=== PATIENT | female | born 1980 | race Caucasian/White ===

== ENCOUNTER 2020-05-08 18:12 | Emergency (ER) | payer BC, SELFPAY ==
[2020-05-08] VITALS (7 sets, daily range): BP systolic 145–160; BP diastolic 87–96; PULSE 62–78; RESP 15–20; TEMP 36.9; O2SAT 99–100
--- NOTE | ~2020-05-08 | CT_ITS ---
EXAMINATION: CT abdomen pelvis w con DATE: 05/08/2020 19:59 INDICATION: Right upper quadrant abdominal pain. TECHNIQUE: Computed tomography (CT) of the abdomen and pelvis was performed with 100 mL Omnipaque-350 intravenous contrast. Automated exposure control and iterative reconstruction technique were employe d. The dose-length product was 504.69 mGy-cm. COMPARISON: None FINDINGS: Mild dependent atelectasis in the bilateral lower lobe. Heart size is normal. No pericardial or pleur al effusion. Focal hepatic steatosis at the ligamentum teres. Gallbladder, spleen, pancreas, bilatera l adrenal glands and kidneys are normal. No intra or extrahepatic biliary ductal dilation. Bowels inc luding the appendix are normal. Heterogeneously enhancing 1.9 and 5.0 cm uterine fibroids. Bladder is normal. 11 mm peripherally enhancing likely corpus luteum cyst in the right ovary. Tampon within the vaginal vault. No free intraperitoneal gas or fluid. No pathologically enlarged abdominal or pelvic lymphadenopathy. Bones are unremarkable. IMPRESSION: 1. No acute intra-abdominal/pelvic process. 2. Fibroid uterus. Reviewed, dictated and finalized at location A.
[2020-05-08 18:46] LABS: Basophils Percent Auto 0.3 % (0.2-1.2); Eosinophils Percent Auto 0.2 % (0-4.4); Hemoglobin 13.3 g/dL (12.0-15.0); Immature Granulocyte Absolute 0.03 K/mm3 (0.00-0.031); Immature Granulocyte Percent A 0.3 % (0-0.5); Lymphocytes Absolute Auto 1.21 K/mm3 (0.9-3.2); Lymphocytes Percent Auto 12.2 % (18.3-44.2); Mean Corpuscular HGB Conc 34.1 g/dl (32-36); Mean Corpuscular Hemoglobin 30.6 pg (26-34); Mean Corpuscular Volume 89.7 fl (80-100); Mean Platelet Volume 9.6 fl (7.4-10.4); Monocytes Absolute Auto 0.4 K/mm3 (0.1-0.6); Monocytes Percent Auto 3.7 % (2.6-8.5); Neutrophils Absolute Auto 8.2 K/mm3 (1.3-6.7); Neutrophils Percent Auto 83.3 % (45.5-73.1); Platelet Count Result 331 k/mm3 (150-375); Red Blood Count 4.35 M/mm3 (4.2-5.4); Red Cell Distribution Width 12.8 % (11.5-14.5); White Blood Count 9.9 K/mm3 (4.5-10.0)
[2020-05-08 18:58] LABS: Alanine Aminotransferase 31 U/L (4-35); Albumin Level 4.7 g/dL (3.5-5.1); Alkaline Phosphatase 94 U/L (38-126); Aspartate Amino Transferase 34 U/L (14-36); Bilirubin,Total 0.5 mg/dL (0.2-1.3); Blood Urea Nitrogen 6 mg/dL (7-17); Calcium 9.1 mg/dL (8.4-10.2); Carbon Dioxide 26 mmol/L (22-30); Chloride 104 mmol/L (98-107); Estimated CRCL calculation 89 ml/min; Estimated Glomerular Filt Rate > 60; Glucose 125 mg/dL (65-105); Lipase 45 U/L (23-300); Potassium 3.4 mmol/L (3.4-5.0); Sodium 138 mmol/L (137-145)
--- NOTE | 2020-05-08 19:06 | ED.ABDPAIN ---
HPI - Abdominal Pain General Chief Complaint: Abdominal Pain <PAMELA Becker Last Filed: 05/08/20 20:28> Stated Complaint: abd pain <PAMELA Becker Last Filed: 05/08/20 20:28> Time Seen by Provider: 05/08/20 18:17 <PAMELA Becker Last Filed: 05/08/20 20:28> Source: patient <PAMELA Becker Last Filed: 05/08/20 20:28> Mode of arrival: ambulatory <PAMELA Becker Last Filed: 05/08/20 20:28> Limitations: no limitations <PAMELA Becker Last Filed: 05/08/20 20:28> History of Present Illness HPI narrative: Patient is a 40-year-old female who presents with 3 days duration of right upper abdominal pain noting that over the weekend she had a day of diffuse loose stools followed by some nausea and vomiting and states that she has continued to have pain to the right upper quadrant patient notes that the pain typically is worse after 2 hours of eating with associated decreased appetite patient presents per private vehicle has not had anything for her symptoms denies similar occurrence in the past denies radiation of pain or other complaints and is in the room on arrival in no distress <PAMELA Becker Last Filed: 05/08/20 20:28> Related Data Allergies/Adverse Reactions: Allergies Allergy/AdvReac Type Severity Reaction Status Date / Time No Known Allergies Allergy Unknown NONE Unverified 08/14/09 12:11 <PAMELA Becker Last Filed: 05/08/20 20:28> Review of Systems Review of Systems: All systems reviewed & are unremarkable except as noted in HPI and below <PAMELA Becker Last Filed: 05/08/20 20:28> PMF Family History Family History: Family History (Updated 07/21/14 @ 07:13 by DOCTOR UNKNOWN) Mother Hypertension Family history of gastrointestinal disorder Family history of hearing loss Father Patient's father is Family history of malignant neoplasm of brain Other Cerebrovascular accident Diabetes mellitus Family history of cardiovascular disease Family history of congestive heart failure Family history of thyroid disease <PAMELA Becker Last Filed: 05/08/20 20:28> Social History Social History: Social History Smoking status: Never smoker Alcohol intake: current Gender identity (if verbalized by the patient): Female <Ld Maradiaga PA-C - Last Filed: 05/08/20 20:28> Exam Narrative: Exam Narrative: GENERAL: Well-appearing, well-nourished, and in no acute distress. HEAD: Normocephalic, atraumatic. EYES: PERRLA and EOMI. ENT: Nares clear, no rhinorrhea or epistaxis. Mucous membranes moist. CHEST: Clear to auscultation. No respiratory distress. No wheezes rales or rhonchi HEART: Regular rate and rhythm. No murmur heard. Normal peripheral pulses. ABDOMEN: Soft, right mid and upper quadrant tenderness to palpation no rebound or guarding, nondistended, normal active bowel sounds. EXTREMITIES: Normal range of motion. No edema. SKIN: Warm, dry, no rash. NEURO: No focal deficits. Alert and oriented x3. Cranial nerves II through XII grossly intact PSYCH: Normal mood and affect. <Ld Maradiaga PA-C - Last Filed: 05/08/20 20:28> Course Course Emergency Course: Patient in the room in no distress aware of case findings treatment plan and diagnosis agreeing to follow-up with gastroenterology and primary care as instructed <Ld Maradiaga PA-C - Last Filed: 05/08/20 20:28> Vital Signs Vital signs: Vital Signs Temperature 98.4 F 05/08/20 18:18 Pulse Rate 74 05/08/20 18:18 Respiratory Rate 18 05/08/20 18:18 Blood Pressure 160/96 H 05/08/20 18:18 Pulse Oximetry 100 05/08/20 18:18 Temperature 98.4 F 05/08/20 18:18 Pulse Rate 70 05/08/20 20:30 Respiratory Rate 16 05/08/20 20:30 Blood Pressure 145/87 H 05/08/20 20:30 Pulse Oximetry 99 06/
[2020-05-08] MEDS: SODIUM CHLORIDE 0.9% IV 1,000 ML 999 ML IV CONT (19:10)
[2020-05-08] MEDS: FAMOTIDINE 20 MG/2 ML VIAL IV PUSH (19:10)
[2020-05-08] MEDS: ONDANSETRON INJ 4 MG/2 ML VIAL IV PUSH (19:10)
--- NOTE | 2020-05-08 19:27 | PC.NURSE ---
Assumed care of pt at this time. report from grayson jay
--- NOTE | 2020-05-08 19:29 | PC.NURSE ---
Assumed care of pt at this time. report from JAVIER Azul
[2020-05-08 19:49] LABS: Add Urine Microscopic? YES; Appearance Urine Clear (Clear); Bacteria Urine Trace /hpf; Bilirubin Urine Negative (Negative); Blood Urine 1+ (Negative); Color Urine Yellow (Yellow); Glucose Urine UA Negative (Negative); Ketones Urine 1+ mg/dL (Negative); Leukocyte Esterase Ur Negative LEU/UL (Negative); Mucus Urine Rare /lpf; Nitrate Urine Negative (Negative); Protein Urine Negative (Negative); RBC Urine 0-2 /hpf (0-2); Specific Grav Ur 1.015 (1.001-1.035); Squamous Epithelial Cell Urine Occasional /hpf (Few); Urobilinogen Urine Negative mg/dL (<2.0); WBC Urine 0-3 /hpf
== END 2020-05-08 20:30 | disposition home or self-care (01) ==
PROVIDERS: Emergency Medicine Emergency Medical Services; Emergency Provider Emergency Medicine; PCP Family Medicine
DX: R10.11 Right upper quadrant pain (principal); D25.9 Leiomyoma of uterus, unspecified
CPT/HCPCS: 36415; 74177; 80053; 81001; 81025; 83690; 85025; 96365; 96375; 99284; J0131; J2405; J7030; Q9967

== ENCOUNTER → 2020-05-23 09:41 | Outpatient (CLI) | payer BC, SELFPAY ==
--- NOTE | ~2020-05-23 | US_ITS ---
EXAMINATION: US right upper quadrant EXAM DATE: 05/23/2020 10:09 INDICATION: Epigastric pain, symptoms 3 weeks. TECHNIQUE: Multiple grayscale and Doppler images of the abdomen right upper quadrant were obtained (b y a technologist who performed the scan) and subsequently reviewed. There is no prior study for scott augustin. FINDINGS: The pancreatic head and body are normal in appearance. The pancreatic tail is not visualized. The l iver has normal echogenicity and contour. There are no focal liver lesions identified. There is no evidence of intrahepatic biliary duct dilation. Portal venous flow was seen in the hepatopedal, nor mal direction and has normal Doppler waveform. No right-sided hydronephrosis. Common bile duct measures 4 mm, which is normal. The gallbladder wall is normal in thickness, with sm all amount of distention. No sonographic evidence of pericholecystic fluid. There is gallbladder de bris. Technologist performing exam reports patient did not demonstrate sonographic Garcia's sign. Please note that this sign is less reliable in patients who have received pain medication. IMPRESSION: 1. Some gallbladder debris. Otherwise unremarkable exam. Reviewed, dictated and finalized at location B.
== END ==
PROVIDERS: PCP Family Medicine; Visit Provider Internal Medicine Gastroenterology
DX: R10.13 Epigastric pain (principal)
CPT/HCPCS: 76705

== ENCOUNTER 2020-05-26 00:24 | Outpatient (CLI) | payer BC, SELFPAY ==
[2020-05-27 00:18] LABS: SARS-CoV-2 RNA PCR Negative
== END 2020-05-26 00:25 | disposition home or self-care (01) ==
LOC: ANHCOVIDDT 00:24
PROVIDERS: PCP Family Medicine; Visit Provider Internal Medicine Gastroenterology
DX: Z01.818 Encounter for other preprocedural examination (principal); Z11.59 Encounter for screening for other viral diseases
CPT/HCPCS: 87635; C9803; U0003

== ENCOUNTER 2020-05-29 01:53 | Day surgery (SDC) | payer BC, SELFPAY ==
[2020-05-23 11:43] VITALS: BMI 26.9
[2020-05-29 07:27] VITALS: BMI 25.9
[2020-05-29 07:28] VITALS: BP 129/80; PULSE 95; RESP 18; TEMP 36.4; O2SAT 95
[2020-05-29] MEDS: LACTATED RINGERS 1,000 ML 150 ML IV CONT (07:37)
--- NOTE | 2020-05-29 07:54 | WPDGICN ---
Assessment and Plan Assessment and plan (1) Epigastric abdominal pain: Code(s): R10.13 - Epigastric pain Status: Acute Assessment and Plan: Plan is to continue trial of proton pump inhibitor. Plan is for EGD to assess more thoroughly. Further recommendations will be given after endoscopy. GI Consult Note Consult date/time: 05/29/20 07:54 HPI: Sharita Esparza is a 40 year old female seen in evaluation at the request of Dr Francisco Brown. Patient reports several week history of epigastric abdominal pain. She describes burping and cramping associated with this pain. Pain begins in the right upper quadrant radiates to the midepigastric area. She describes the pain as burping and cramping. It began in the right upper quadrant radiated to the midepigastric area. After being seen in the emergency room was given a trial of Levsin antispasmodic agent with no change in symptoms. She recently has been on omeprazole with some gradual improvement of symptoms. For several days she has been pain-free. Family history is significant that her mother had Crohn's disease in this is of concern to the patient. Recent CT scan in the ER was unremarkable. Review of Systems Review of Systems: All systems reviewed & are unremarkable except as noted in HPI and below PMFSH Family History Family History Mother Hypertension Family history of gastrointestinal disorder Family history of hearing loss Father Patient's father is Family history of malignant neoplasm of brain Other Cerebrovascular accident Diabetes mellitus Family history of cardiovascular disease Family history of congestive heart failure Family history of thyroid disease Social History Social History Smoking status: Never smoker Alcohol intake: current Gender identity (if verbalized by the patient): Female Meds Home Medications and Allergies Home Medications Medication Instructions Recorded Confirmed Type omeprazole 40 mg PO DAILY #10 cap 05/08/20 05/29/20 Rx Allergies Allergy/AdvReac Type Severity Reaction Status Date / Time oxycodone Allergy Itching Verified 05/29/20 07:26 Vital Signs Vital Signs - 24 hr 05/29/20 07:28 Temperature 97.5 F L Pulse Rate 95 Respiratory Rate 18 Blood Pressure 129/80 Pulse Oximetry 95 Exam Narrative: Exam Narrative: Physical exam reveals patient to be alert. Vital signs stable. HEENT exam unremarkable. She is anicteric. Lungs are clear to auscultation and percussion. Heart is without murmur or extra sounds. Abdominal exam bowel sounds are present soft nontender with no hepatosplenomegaly. Digital external rectal exam normal.
--- NOTE | 2020-05-29 07:59 | WPDANESEPPF ---
Anes - Initial Pre Proc Eval Procedure: Operation Date: 05/29/20 08:30 Proposed Procedures p Esophagogastroduodenoscopy - Robel Guerrero MD Date/Time: 05/29/20 07:59 Surgeon: Robel Guerrero MD Pre Op Diagnosis: Epigastric Pain Patient Data Age: 40 Gender: F Height: 5 ft 7 in Weight: 75.1 kg Last Vital Signs Temp 36.4 C L 05/29/20 07:28 Pulse 95 05/29/20 07:28 Resp 18 05/29/20 07:28 BP 129/80 05/29/20 07:28 Pulse Ox 95 05/29/20 07:28 Allergies Allergy/AdvReac Type Severity Reaction Status Date / Time oxycodone Allergy Itching Verified 05/29/20 07:26 Home Medications Medication Instructions Recorded Confirmed Type omeprazole 40 mg PO DAILY #10 cap 05/08/20 05/29/20 Rx Patient hx anesthesia problems: none Family hx anesthesia problems: none PMFSH Past Medical History Medical History (Updated 05/29/20 @ 08:01 by Francisco Patel MD) Hypothyroidism Family History Family History Mother Hypertension Family history of gastrointestinal disorder Family history of hearing loss Father Patient's father is Family history of malignant neoplasm of brain Other Cerebrovascular accident Diabetes mellitus Family history of cardiovascular disease Family history of congestive heart failure Family history of thyroid disease Social History Social History Smoking status: Never smoker Alcohol intake: current Gender identity (if verbalized by the patient): Female Anes - Eval Final PreProcedure Day of Procedure 05/29/20 07:59 Patient weight: overweight Heart: regular rate and rhythm Lungs: clear to auscultation Airway: Mallampati scale class II Neurological: alert and oriented Last oral intake: >/= 8 hours ASA classification: II Emergent: no Anesthetic plan: proceed Anesthesia type and monitoring: general GIVS and standard monitoring Informed Consent: The patient's anesthetic plan and its attendant risks and benefits were discussed with the patient/family/POA. Questions were solicited and answers provided to the satisfaction of the patient/family/POA.
[2020-05-29] MEDS: BENZOCAINE (*SP) 60 ML SPRAY CAN (HURRICAINE) 1 SPRAY MUCOUS MEM (08:35)
[2020-05-29 08:47] VITALS: BP 98/60; PULSE 76; RESP 19; O2SAT 97
[2020-05-29 08:57] VITALS: BP 107/66; PULSE 71; RESP 19; O2SAT 99
[2020-05-29 09:07] VITALS: BP 104/80; PULSE 78; RESP 20; O2SAT 99
== END 2020-05-29 09:24 | disposition home or self-care (01) ==
PROVIDERS: PCP Family Medicine; Visit Provider Internal Medicine Gastroenterology
PROC: 0DJ08ZZ Inspection of Upper Intestinal Tract, Via Natural or Artificial Opening Endoscopic (ICD-10-PCS; CPT 43235; principal; 2020-05-29 08:30)
DX: R10.13 Epigastric pain (principal)
CPT/HCPCS: 43239; 87081; 87635; C9803; J2704; J7120; U0003

== ENCOUNTER → 2021-08-30 15:04 | Outpatient (CLI) | payer BC, SELFPAY ==
--- NOTE | ~2021-08-30 | US_ITS ---
EXAMINATION: US pelvic complete w TV DATE: 08/30/2021 15:50 INDICATION: Abnormal uterine bleeding, premenopausal TECHNIQUE: Multiple transabdominal and endovaginal sonographic images of the pelvis were obtained. COMPARISON: CT, 05/08/2020 FINDINGS: The uterus measures 8.8 x 3.7 x 4.3 cm. There is an approximately 5.1 x 4.9 x 5.9 cm mass o f the uterine fundus with the appearance of a subserosal fibroid. There is a 3.3 x 2.2 x 2.9 cm mass of the posterior uterine body with the appearance of an intramural fibroid. The endometrial complex m easures 8 mm. The right ovary is not visualized however no right adnexal abnormality is seen. The lef t ovary measures 1.9 x 1.4 x 1.5 cm. There is normal vascular flow in the left ovary. There is no melecio e fluid in the pelvis. IMPRESSION: 1. Uterine fibroids. Reviewed, dictated and finalized at location A. IMPRESSION: 1. Uterine fibroids.
== END ==
PROVIDERS: PCP Family Medicine; Visit Provider Nurse Practitioner
DX: N93.8 Other specified abnormal uterine and vaginal bleeding (principal); D25.9 Leiomyoma of uterus, unspecified
CPT/HCPCS: 76830; 76856

== ENCOUNTER → 2021-10-01 14:56 | Outpatient (CLI) | payer BC, SELFPAY ==
--- NOTE | ~2021-10-01 | MM_ITS ---
EXAMINATION: MM screening sarah BI w brittney HISTORY: Screening mammogram TECHNIQUE: Craniocaudal and mediolateral oblique 3-D tomosynthesis images were obtained and synthetic 2-D images were generated. Bilateral rotated lateral CC views. CAD analysis was submitted and interp reted. COMPARISON: 05/30/2014 bilateral diagnostic mammography and bilateral breast ultrasound 05/17/2014 bilateral screening mammogram BREAST PARENCHYMAL COMPOSITION: FINDINGS: There is no evidence of suspicious mass, calcification, or architectural distortion to sugg est malignancy in either breast. There has been no suspicious interval change. IMPRESSION: 1. No mammographic evidence of malignancy. 2. Recommend routine screening mammography in one year. BI-RADS Category 1: Negative Reviewed, dictated and finalized at location A. HOUSE FREIGHT HANDLER
== END ==
PROVIDERS: PCP Family Medicine; Visit Provider Nurse Practitioner
DX: Z12.31 Encounter for screening mammogram for malignant neoplasm of breast (principal)
CPT/HCPCS: 77063; 77067

== ENCOUNTER 2022-10-15 17:19 | Outpatient (CLI) | payer BC, SELFPAY ==
--- NOTE | ~2022-10-15 | US_ITS ---
EXAMINATION: US pelvic complete w TV DATE: 10/15/2022 18:22 INDICATION: Uterine fibroids. Comparison:Ultrasound dated 08/30/2021 TECHNIQUE: Multiple transabdominal and endovaginal sonographic images of the pelvis performed. FINDINGS: The uterus measures 8 x 4.4 x 4.6 cm. There are are uterine fibroids. In the anterior aspec t of the uterus there is a 4.2 x 4 x 4 cm fibroid. Posteriorly there is a 2.3 x 2.3 x 2.2 cm fibroid. The endometrial complex measures 9 mm. The right ovary is not visualized. Left ovary is unremarkable measuring 2.8 x 1.2 x 1.4 cm. There is no free fluid in the pelvis. There are no abnormal masses seen on either side. IMPRESSION: 1. Uterine fibroids, largest measuring 4.2 cm maximum dimension anteriorly. Reviewed, dictated and finalized at location B. CAL BILLING SUPERVISOR
== END 2022-10-15 17:20 | disposition home or self-care (01) ==
PROVIDERS: Visit Provider Nurse Practitioner
DX: D25.9 Leiomyoma of uterus, unspecified (principal)
CPT/HCPCS: 76830; 76856

== ENCOUNTER → 2022-10-18 09:11 | Outpatient (CLI) | payer BC, SELFPAY ==
--- NOTE | ~2022-10-18 | MM_ITS ---
EXAMINATION: MM screening sarah BI w brittney HISTORY: Screening mammogram TECHNIQUE: Craniocaudal and mediolateral oblique 3-D tomosynthesis images were obtained and synthetic 2-D images were generated. Bilateral rotated lateral CC views. CAD analysis was submitted and interp reted. COMPARISON: 10/01/2021 bilateral screening mammogram 05/30/2014 bilateral diagnostic mammography and bilateral breast ultrasound 05/17/2014 bilateral screening mammogram BREAST PARENCHYMAL COMPOSITION: There are scattered areas of fibroglandular density. FINDINGS: There is no evidence of suspicious mass, calcification, or architectural distortion to sugg est malignancy in either breast. There has been no suspicious interval change. IMPRESSION: 1. No mammographic evidence of malignancy. 2. Recommend routine screening mammography in one year. BI-RADS Category 1: Negative Reviewed, dictated and finalized at location A. ER COSMETOLOGIST
== END ==
PROVIDERS: Visit Provider Nurse Practitioner
DX: Z12.31 Encounter for screening mammogram for malignant neoplasm of breast (principal)
CPT/HCPCS: 77063; 77067

== ENCOUNTER 2023-08-21 17:39 | Emergency (ER) | payer BC, SELFPAY ==
--- NOTE | 2023-08-21 17:45 | ED.URI ---
HPI - URI/Sore Throat General Chief Complaint: Upper Respiratory Infection Stated Complaint: Cough/Right Ear Irritation Time Seen by Provider: 08/21/23 18:00 Source: patient Mode of arrival: ambulatory Limitations: no limitations History of Present Illness HPI Narrative: Sharita is a 43-year-old female patient presenting to the clinic today with complaints of cough, congestion, and right ear pain. She reports the symptoms just started 1-2 days ago. No known fever or chills. 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 History of recurrent ear infections MD elicited complaint: cough, rhinorrhea, nasal congestion and other (Right ear pain) Related Data Home Medications Medication Instructions Recorded Confirmed levothyroxine 50 mcg tablet 50 mcg DIRECTED 08/21/23 08/21/23 Allergies Allergy/AdvReac Type Severity Reaction Status Date / Time oxycodone Allergy Itching Verified 05/29/20 07:26 Review of Systems Review of Systems: Pertinent positives per HPI. Patient denies any fever, chills, rash, headache, visual changes, dizziness, shortness of breath, chest pain, palpitations, nausea, vomiting, diarrhea, constipation, abdominal pain, or any urinary issues. [facility] Past Medical History Medical History Hypothyroidism Family History Family History Mother Hypertension Family history of gastrointestinal disorder Family history of hearing loss Father Patient's father is Family history of malignant neoplasm of brain Other Cerebrovascular accident Diabetes mellitus Family history of cardiovascular disease Family history of congestive heart failure Family history of thyroid disease Social History Social History Smoking status: Never smoker Alcohol intake: current Gender identity (if verbalized by the patient): Female Comments At the time of my signature, I reviewed and agree with the nursing past medical, surgical, social, and family history. There is no relevant family history pertinent to the patient complaint. Exam Narrative: General: Well-developed, well nourished, in no apparent distress Head: Normocephalic, atraumatic Eyes: Pupils equally round and reactive to light bilaterally, EOM intact, sclera and conjunctive clear, no discharge, lids normal Ears: And left tMs intact and clear, right TM intact, bulging, opaque with mild redness, ear canals clear, no drainage, grossly hearing normal. Nose: Nares patent, clear nasal discharge, no inflammation, no sinus tenderness. Mouth: Oral pharynx without lesions or masses, good dentition, MMM. Postnasal drip Neck: Supple, trachea midline, no enlargement of anterior or posterior cervical nodes, no thyroid masses or goiter palpable. Cardio: Regular rate and rhythm, s1 and s2 normal, no murmur appreciated. Resp: Clear to auscultation bilaterally, no rhonchi, rales, wheezing or rubs Course Course Emergency Course: Portions of this record may have been created with voice recognition software. Level of Care: Express Care Visit Vital Signs Vital signs: Vital Signs Temperature 36.7 C 08/21/23 17:51 Pulse Rate 125 H 08/21/23 17:51 Respiratory Rate 18 08/21/23 17:51 Blood Pressure 138/99 H 08/21/23 17:51 Pulse Oximetry 99 08/21/23 17:51 Oxygen Delivery Room Air 08/21/23 17:51 Temperature 36.7 C 08/21/23 17:51 Pulse Rate 125 H 08/21/23 17:51 Respiratory Rate 18 08/21/23 17:51 Blood Pressure 138/99 H 08/21/23 17:51 Pulse Oximetry 99 08/21/23 17:51 Oxygen Delivery Room Air 08/21/23 17:51 Vital signs reviewed MDM - URI/Sore Throat MDM Narrative Medical decision making narrative: At the time of visit patient is resting on the exam table. Due to history and congestion behind th
[2023-08-21 17:51] VITALS: BP 138/99; PULSE 125; RESP 18; TEMP 36.7; O2SAT 99
== END 2023-08-21 18:30 | disposition home or self-care (01) ==
PROVIDERS: Emergency Provider Nurse Practitioner Family; PCP Family Medicine
DX: H66.90 Otitis media, unspecified, unspecified ear (principal); J06.9 Acute upper respiratory infection, unspecified; E03.9 Hypothyroidism, unspecified; Z79.899 Other long term (current) drug therapy
CPT/HCPCS: 99213; G0463

== ENCOUNTER → 2023-11-07 08:12 | Outpatient (CLI) | payer BC, SELFPAY ==
--- NOTE | ~2023-11-07 | US_ITS ---
EXAMINATION: US pelvic complete DATE: 11/07/2023 08:43 INDICATION: Abnormal uterine bleeding. TECHNIQUE: Multiple transabdominal sonographic images of the pelvis were obtained. COMPARISON: Ultrasound 10/15/2022 FINDINGS: The uterus measures 9.3 x 4.8 x 4.9 cm. There is a 4.4 cm subserosal fibroid. There is no free fluid in the pelvis. The endometrial complex measures 1.1 cm in thickness. The right ovary measures 4.1 x 3 .3 x 3.3 cm. The left ovary measures 2.5 x 1.9 x 1.7 cm. There is normal vascular flow in the ovaries . IMPRESSION: 1. Uterine fibroid. Reviewed, dictated and finalized at location A. IVING LEAD IMPRESSION: 1. Uterine fibroid.
== END ==
PROVIDERS: PCP Nurse Practitioner; Visit Provider Nurse Practitioner
DX: N93.8 Other specified abnormal uterine and vaginal bleeding (principal); D25.9 Leiomyoma of uterus, unspecified
CPT/HCPCS: 76856

== ENCOUNTER 2024-01-26 01:07 | Day surgery (SDC) | payer BC, SELFPAY ==
[2024-01-19 15:09] VITALS: BMI 27.3
--- NOTE | 2024-01-19 15:15 | PC.NURSE ---
Report to the Outpatient Waiting Room, entrance under the green pavilion located off [facility], at time 0745 on date 01/26/24. Planned Procedure Time: 0945. Time changes happen often and if your time is changed the preop area will call you the afternoon before. - You and your visitor will be asked to self-screen and do not enter if you have any COVID symptoms. - A mask is optional within the hospital at this time. Patients may have clear liquids (water, carbonated beverages, clear teas, apple juice) until 3 hours prior to surgery with a maximum of 20 ounces. - No food from midnight until time of surgery Take the following medications with a SIP of water the morning of surgery: LEVOTHYROXINE DO NOT STOP ANY OF YOUR OTHER PRESCRIPTION MEDICATIONS PRIOR TO SURGERY ?EXCEPT THE FOLLOWING Medications to discontinue per physician: N/A Date to take last dose: N/A Please no make-up, nail macedonian, hairspray, perfume, deodorant, or body powder the day of surgery. No jewelry (including any body piercings) or valuables the day of surgery, leave them at home. Please take a shower or bath the night before, or the morning of, surgery with an antibacterial soap. Wear comfortable, loose fitting clothing. - Jewelry must be removed prior to entering the operating room. Rings and piercings that are not removed may be cut off. - The hospital will not accept responsibility for valuables. - Please leave all valuables, including medications, at home the day of surgery. If you are going home after surgery, a licensed bus driver/monitor must drive you home. - NO public transportation without another adult if you receive anesthesia. - We recommend that an adult stay with you for 24 hours following discharge. - We also recommend that you do not drive, make important decision, drink alcoholic beverages, or take any drugs that were not prescribed by your health care provider for at least 24 hours after your discharge time. Follow any additional instructions given to you from your surgeon. If you or anyone in your household have experienced Covid symptoms in the past week, please notify your surgeon or the nurse liaison at the phone number below for possible testing. Telephone instructions given to PT Akila ARAIZA and asked if any additional questions and then verbalized understanding. Patient advised to call surgeon office or pre surgery nurse liaison [phone] if any additional questions.
--- NOTE | 2024-01-26 07:33 | P.HP_ITS ---
History of Present Illness History of Present Illness Consent: Risks, benefits, and alternatives have been discussed and questions answered. Patient agrees to proceed with procedure. Chief complaint: abnormal uterine bleeding, fibroids Narrative: Sharita Esparza is a 43 year old female with irregular and heavy cycles. Pelvic ultrasound does show a subserosal fibroid but no submucosal ones are seen. It was recommended to undergo D&C hysteroscopy. Risks of infection, bleeding, perforation, and possible pathology are discussed. Patient voices understanding and agrees to proceed. Review of Systems Review of Systems: not repeated day of surgery; patient states no changes in status [facility] Past Medical History Medical History (Updated 01/26/24 @ 07:36 by Mary Bales MD) Hypothyroidism Surgical History Surgical History (Updated 01/26/24 @ 07:35 by Mary Bales MD) History of bladder suspension procedure 2009 History of knee surgery History of tympanomastoidectomy right 2015 Family History Family History Mother Hypertension Family history of gastrointestinal disorder Family history of hearing loss Father Patient's father is Family history of malignant neoplasm of brain Other Cerebrovascular accident Diabetes mellitus Family history of cardiovascular disease Family history of congestive heart failure Family history of thyroid disease Social History Social History Smoking status: Former smoker Tobacco type: cigarettes Smoking end date: 11/24/09 Additional smoking assessment comments: [employer]MER [employer] Alcohol intake: current Drinks per week: 4 Substance use: never Substance use type: does not use Living arrangements: with family Gender identity (if verbalized by the patient): Female Spiritual care concerns: No Meds Home Medications and Allergies Home Medications Medication Instructions Recorded Confirmed Type levothyroxine 50 mcg tablet 50 mcg PO DIRECTED 08/21/23 01/19/24 History loratadine 10 mg tablet 10 mg PO DAILY 01/19/24 01/19/24 History Allergies Allergy/AdvReac Type Severity Reaction Status Date / Time oxycodone Allergy Itching Verified 01/19/24 15:08 Exam Const: General: healthy appearing and alert Orientation/consciousness: patient oriented x3 Resp: Effort & Inspection: normal respiratory effort : External Female Exam: normal external appearance Speculum Exam - Vagina: normal appearance of the vagina and normal vaginal discharge Speculum Exam - Cervix: normal appearance of the cervix Bimanual exam- vagina & uterus: consistency normal and enlarged Bimanual Exam- Adnexa, other: normal adnexae and No adnexal tenderness Neuro: General: patient oriented x3 Assessment and Plan Assessment and plan (1) Menorrhagia: Code(s): N92.0 - Excessive and frequent menstruation with regular cycle Status: Acute Assessment and Plan: plan to proceed with D&C hysteroscopy
--- NOTE | 2024-01-26 07:33 | WPDHPUPDATE1 ---
History and Physical Update Update Date/Time: 01/26/24 07:33 History and Physical has been reviewed, including an updated exam of the patient. There are NO changes in the patient's condition. Risks, benefits, and alternatives have been discussed and questions answered. Patient agrees to proceed with procedure.
[2024-01-26] MEDS: ACETAMINOPHEN 500 MG TABLET 1000 MG PO (08:00)
[2024-01-26 08:12] VITALS: BP 129/83; PULSE 80; RESP 16; TEMP 36.3; O2SAT 98
--- NOTE | 2024-01-26 08:24 | WPDANESEPPF ---
Anes - Initial Pre Proc Eval Procedure: Operation Date: 01/26/24 09:45 Proposed Procedures p Hysteroscopy Dilation and Curettage with Possible Myosure - Mary Bales MD Date/Time: 01/26/24 08:24 Surgeon: Mary Bales MD Pre Op Diagnosis: abnormal uterine bleeding, fibroids Patient Data Age: 43 Gender: F Height: 1.7 m Weight: 82.3 kg Last Vital Signs Temp 36.3 C L 01/26/24 08:12 Pulse 80 01/26/24 08:12 Resp 16 01/26/24 08:12 BP 129/83 01/26/24 08:12 Pulse Ox 98 01/26/24 08:12 O2 Del Method Room Air 01/26/24 08:12 Allergies Allergy/AdvReac Type Severity Reaction Status Date / Time oxycodone Allergy Itching Verified 01/26/24 07:55 Home Medications Medication Instructions Recorded Confirmed Type levothyroxine 50 mcg tablet 50 mcg PO DIRECTED 08/21/23 01/19/24 History loratadine 10 mg tablet 10 mg PO DAILY 01/19/24 01/19/24 History Patient hx anesthesia problems: none Family hx anesthesia problems: none Results Review: All pre-operative results and documents have been reviewed as part of the pre-operative evaluation. [facility] Past Medical History Medical History (Updated 01/26/24 @ 08:24 by Giovanni Conn DO) Anxiety GERD (gastroesophageal reflux disease) Hypothyroidism Surgical History Surgical History (Updated 01/26/24 @ 07:35 by Mary Bales MD) History of bladder suspension procedure 2009 History of knee surgery History of tympanomastoidectomy right 2014 Family History Family History Mother Hypertension Family history of gastrointestinal disorder Family history of hearing loss Father Patient's father is Family history of malignant neoplasm of brain Other Cerebrovascular accident Diabetes mellitus Family history of cardiovascular disease Family history of congestive heart failure Family history of thyroid disease Social History Social History Smoking status: Former smoker Tobacco type: cigarettes Smoking end date: 11/24/09 Additional smoking assessment comments: [employer]MER [employer] Alcohol intake: current Drinks per week: 4 Substance use: never Substance use type: does not use Living arrangements: with family Gender identity (if verbalized by the patient): Female Spiritual care concerns: No Anes - Eval Final PreProcedure Day of Procedure 01/26/24 08:24 Patient weight: overweight Heart: regular rate and rhythm Lungs: clear to auscultation Airway: Mallampati scale class II Neurological: alert and oriented Last oral intake: >/= 8 hours ASA classification: II Emergent: no Anesthetic plan: proceed Anesthesia type and monitoring: general GIVS and standard monitoring Results Review: All pre-operative results and documents have been reviewed as part of the pre-operative evaluation. Informed Consent: The patient's anesthetic plan and its attendant risks and benefits were discussed with the patient/family/POA. Questions were solicited and answers provided to the satisfaction of the patient/family/POA.
[2024-01-26] MEDS: LACTATED RINGERS 1,000 ML 30 ML IV CONT (08:32)
--- NOTE | 2024-01-26 09:50 | W.PM.PROC2 ---
Procedure Note - Detailed Date of Procedure 01/26/24 Pre-op Diagnosis abnormal uterine bleeding, fibroids Post-op Diagnosis Same Procedure Performed D&C hysteroscopy Surgeon Mary Bales MD Anesthesia MAC Findings uterus sounds to 8cm and appears grossly normal Description of Procedure The patient is taken to the operating room and placed under anesthesia in the dorsal lithotomy position. She was prepped and draped in the usual sterile fashion. [place] speculum was placed in the vagina and the cervix grasped on the anterior lip with a tenaculum. The uterus sounds to 8cm. The diagnostic hysteroscope was placed and with no abnormalities noted it is removed. The OO sharp curette would not pass the internal os. The Hegar was were used and the cervix dilated to a 5 Hegar. The curette then was able to pass. The endometrium was curetted in a sharp manner until a good uterine cry was noted on all areas. All instruments are removed. Sponge, needle, and instrument counts are correct per the OR staff. The patient was awakened from anesthesia and taken to recovery in stable condition. Estimated Blood Loss 5 Drains No Packing No Pathology Yes ( Endometrial curettings) Complications No immediate complications Condition Stable Disposition PACU
[2024-01-26 09:53] VITALS: BP 127/72; PULSE 78; RESP 16; O2SAT 95
[2024-01-26 10:20] VITALS: BP 119/88; PULSE 74; RESP 18; O2SAT 99
[2024-01-26 10:35] VITALS: BP 133/77; PULSE 72; RESP 16
== END 2024-01-26 10:45 | disposition home or self-care (01) ==
PROVIDERS: PCP Nurse Practitioner; Visit Provider Obstetrics & Gynecology Gynecology
PROC: 0U5B8ZZ Destruction of Endometrium, Via Natural or Artificial Opening Endoscopic (ICD-10-PCS; CPT 58563; principal; 2024-01-26 09:45)
DX: N92.0 Excessive and frequent menstruation with regular cycle (principal); N85.8 Other specified noninflammatory disorders of uterus; E03.9 Hypothyroidism, unspecified; F41.9 Anxiety disorder, unspecified; K21.9 Gastro-esophageal reflux disease without esophagitis; Z98.890 Other specified postprocedural states; Z87.891 Personal history of nicotine dependence; Z82.49 Family history of ischemic heart disease and other diseases of the circulatory system; Z80.8 Family history of malignant neoplasm of other organs or systems
CPT/HCPCS: 58558; 88305; A9270; J2250; J2704; J3010; J7120

== ENCOUNTER 2024-02-27 09:55 | Outpatient (CLI) | payer BC, SELFPAY ==
--- NOTE | ~2024-02-27 | MM_ITS ---
EXAMINATION: MM screening sarah BI w brittney HISTORY: Screening TECHNIQUE: Craniocaudal and mediolateral oblique 3-D tomosynthesis images were obtained and synthetic 2-D images were generated. CAD analysis was submitted and interpreted. COMPARISON: Comparison to multiple prior studies sequentially, with oldest reviewed study dated 06/2021. BREAST PARENCHYMAL COMPOSITION: Not dense: There are scattered areas of fibroglandular density. FINDINGS: There is no evidence of suspicious mass, calcification, or architectural distortion to sugg est malignancy in either breast. There has been no suspicious interval change. IMPRESSION: 1. No mammographic evidence of malignancy. 2. Recommend routine screening mammography in one year. BI-RADS Category 1: Negative Reviewed, dictated and finalized at location A.
== END 2024-02-27 09:56 ==
LOC: MICIMG 09:56
PROVIDERS: PCP Nurse Practitioner; Visit Provider Nurse Practitioner
DX: Z12.31 Encounter for screening mammogram for malignant neoplasm of breast (principal)
CPT/HCPCS: 77063; 77067

== ENCOUNTER 2025-08-04 12:27 | Outpatient (CLI) | payer BC, SELFPAY ==
--- NOTE | ~2025-08-04 | MM_ITS ---
EXAMINATION: MM screening sarah BI w brittney HISTORY: Screening TECHNIQUE: Craniocaudal and mediolateral oblique 3-D tomosynthesis images were obtained and synthetic 2-D images were generated. CAD analysis was submitted and interpreted. COMPARISON: Comparison to multiple prior studies sequentially, with oldest reviewed study dated , 05/17/2014 BREAST PARENCHYMAL COMPOSITION: There are scattered areas of fibroglandular density. FINDINGS: There is no evidence of suspicious mass, calcification, or architectural distortion to suggest malignancy in either breast. IMPRESSION: 1. No mammographic evidence of malignancy. 2. Recommend routine screening mammography in one year. BI-RADS Category 1: Negative Reviewed, dictated and finalized at location B.
== END 2025-08-04 12:28 | disposition home or self-care (01) ==
PROVIDERS: PCP Nurse Practitioner; Visit Provider Nurse Practitioner
DX: Z12.31 Encounter for screening mammogram for malignant neoplasm of breast (principal)
CPT/HCPCS: 77063; 77067